=== PATIENT | male | born 1960 | race Caucasian/White ===

== ENCOUNTER 2024-02-14 08:14 | Day surgery (SDC) | payer MEDICARE ==
[2024-02-14] MEDS ORDERED: propofoL 50 ML ONE (08:34)
[2024-02-14] MEDS: Lactated Ringers 1,000 ML IV SCH (09:08)
[2024-02-14] MEDS ORDERED: Lidocaine 2% 5 ML SDV ONE (09:44)
[2024-02-14] MEDS ORDERED: Propofol 200 MG/20 ML SDV ONE (11:16)
== END 2024-02-14 12:00 | disposition home or self-care (01) ==
LOC: MW.SDS 08:14
PROVIDERS: ATTEND Surgery
DX: Z12.11 Encounter for screening for malignant neoplasm of colon (principal); K21.00 Gastro-esophageal reflux disease with esophagitis, without bleeding; K31.89 Other diseases of stomach and duodenum; K44.9 Diaphragmatic hernia without obstruction or gangrene; K57.30 Diverticulosis of large intestine without perforation or abscess without bleeding; I10 Essential (primary) hypertension; Z86.010 Personal history of colon polyps; Z79.899 Other long term (current) drug therapy; Z91.040 Latex allergy status; Z88.2 Allergy status to sulfonamides; Z88.5 Allergy status to narcotic agent; Z88.1 Allergy status to other antibiotic agents; Z88.8 Allergy status to other drugs, medicaments and biological substances
CPT/HCPCS: 43239; 88305; G0105; J2704; J7120; 00813; J3490